=== PATIENT | male | born 1995 | race Caucasian/White ===

== ENCOUNTER 2018-11-20 13:14 | Emergency (ER) | payer BC ==
[~2018-11-20] VITALS: Ht 182.9 cm; Wt 111.7 kg
[2018-11-20 13:15] VITALS: BP 140/99
[2018-11-20] MEDS ORDERED: MELO7.5T29 PO (13:39)
[2018-11-20] MEDS ORDERED: SULF1TAB24 PO (13:39)
--- NOTE | 2018-11-20 13:39 | PHYS DOC ---
Past History Past Medical History: No Pertinent History Past Surgical History: No Surgical History Smoking: Cigarettes Alcohol Use: Occasionally Drug Use: Marijuana Adult General Chief Complaint Chief Complaint: LOWER EXT PAIN HPI HPI Patient is a 23-year-old male presents with a region on his right medial thigh that has been red and hot for approximately the past week. Patient denies any subjective fever. Denies any drainage. Increased pain with movement especially extension of his leg. No numbness or tingling. No trauma. No injection of drugs in the region. No home pain medicine has been taken.[] Review of Systems Review of Systems Constitutional: Denies fever or chills [] Eyes: Denies change in visual acuity, redness, or eye pain [] HENT: Denies nasal congestion or sore throat [] Respiratory: Denies cough or shortness of breath [] Cardiovascular: No chest pain or palpitations[] GI: Denies abdominal pain, nausea, vomiting, bloody stools or diarrhea [] : Denies dysuria or hematuria [] Musculoskeletal: Denies back pain or joint pain [] Integument: See history of present illness[] Neurologic: Denies headache, focal weakness or sensory changes [] Endocrine: Denies polyuria or polydipsia [] All other systems were reviewed and found to be within normal limits, except as documented in this note. Allergies Allergies Allergies Coded Allergies Type Severity Reaction Last Updated Verified No Known Drug Allergies 11/20/18 No Physical Exam Physical Exam Constitutional: Well developed, well nourished, no acute distress, non-toxic appearance. [] HENT: Normocephalic, atraumatic, bilateral external ears normal, oropharynx moist, no oral exudates, nose normal. [] Eyes: PERRLA, EOMI, conjunctiva normal, no discharge. [] Neck: Normal range of motion, no tenderness, supple, no stridor. [] Cardiovascular:Heart rate regular rhythm, no murmur [] Lungs & Thorax: Bilateral breath sounds clear to auscultation [] Abdomen: Not examined. [] Skin: Warm, dry, erythema and induration medial thigh on the right. No inguinal lymphadenopathy. No drainable abscess appreciated. This is approximately 10 cm cephalad to caudad and 7 cm transverse[] Back: No tenderness, no CVA tenderness. [] Extremities: No tenderness, no cyanosis, no clubbing, ROM intact, no edema. [] Neurologic: Alert and oriented X 3, normal motor function, normal sensory function, no focal deficits noted. [] Psychologic: Affect normal, judgement normal, mood normal. [] EKG EKG [] Radiology/Procedures Radiology/Procedures [] Course & Med Decision Making Course & Med Decision Making Pertinent Labs and Imaging studies reviewed. (See chart for details) Medical decision making: Patient appears to have cellulitis without any drainable abscess. No evidence of systemic toxicity. No evidence of staph scalded skin syndrome, no toxic epidermal necrolysis, no Haynes-Ivan syndrome. ED course: Patient arrived, was placed in bed, and tolerated exam well. Discussed findings and plan with the patient voiced understanding. All questions were answered. He was discharged in improved condition.[] Dragon Disclaimer Dragon Disclaimer This electronic medical record was generated, in whole or in part, using a voice recognition dictation system. Departure Departure: Impression: Primary Impression: Cellulitis of right thigh Disposition: HOME, SELF-CARE Condition: IMPROVED Referrals: LUCIE BAPTISTE MD (PCP) Follow-up in 2 days Patient Instructions: Cellulitis Additional Instructions: Follow-up with your regular doctor in 2 days for a recheck. Apply warm compresses for 15 minutes at a time, at least 4 times a day to the affected area. Return to the ER if you develop a fever of more than 101�, purulent drainage develops, or any other concerns. Scripts Meloxicam (MELOXICAM) 7.5 Mg Tablet 7.5 MG PO DAILY for PAIN, #20 TAB Prov: LAM BAUTISTA DO 11/20/18 Sulfamethoxazole/Trimethoprim (BACTRIM DS TABLET) 1 Each Tablet 2 TAB PO BID for cellulitis, #40 TAB Prov: LAM BAUTISTA DO 11/20/18 LAM BAUTISTA DO Nov 20, 2018 13:39
== END 2018-11-20 13:40 | disposition home or self-care (01) ==
LOC: ER 13:14
DX: L03.115 Cellulitis of right lower limb (principal); F17.210 Nicotine dependence, cigarettes, uncomplicated
CPT/HCPCS: 99283

== ENCOUNTER 2019-11-20 00:56 | Emergency (ER) | payer BC ==
[~2019-11-20] VITALS: Ht 182.9 cm; Wt 109.0 kg
[~2019-11-20 00:56] MED LIST: MELO7.5T29 PO; SULF1TAB24 PO
[2019-11-20 01:32] VITALS: BP 146/89
--- NOTE | 2019-11-20 01:54 | PHYS DOC ---
Past History Past Medical History: No Pertinent History Past Surgical History: No Surgical History Smoking: Cigarettes Alcohol Use: Occasionally Drug Use: Marijuana General Adult EDM: Chief Complaint: DENTAL PROBLEM HPI: HPI: "..I got bad tooth..I could not get in to Dentist..COVID.. now I got this abscess.." Patient is a 24-year-old male who presents with above history and complaints of pain, fever, and pointing abscess at tooth #7. Patient is attempted to get into dentist however limited appointments due to COVID. Patient denies any history of depression. No history of travel. No history of depression. Up-to-date with vaccinations. Review of Systems: Review of Systems: Constitutional: Complains of fever Eyes: Denies change in visual acuity HENT: Denies nasal congestion or sore throat. Complaints of dental pain Respiratory: Denies cough or shortness of breath Cardiovascular: Denies chest pain or edema GI: Denies abdominal pain, nausea, vomiting, bloody stools or diarrhea : Denies dysuria Musculoskeletal: Denies back pain or joint pain Integument: Denies rash Neurologic: Denies headache, focal weakness or sensory changes Endocrine: Denies polyuria or polydipsia Lymphatic: Denies swollen glands Psychiatric: Denies depression or anxiety Heart Score: Risk Factors: Risk Factors: DM, Current or recent (<one month) smoker, HTN, HLP, family history of CAD, obesity. Risk Scores: Score 0 - 3: 2.5% MACE over next 6 weeks - Discharge Home Score 4 - 6: 20.3% MACE over next 6 weeks - Admit for Clinical Observation Score 7 - 10: 72.7% MACE over next 6 weeks - Early Invasive Strategies Family History: Family History: Noncontributory Current Medications: Current Meds: See nursing for home meds Allergies: Allergies: Allergies Coded Allergies Type Severity Reaction Last Updated Verified No Known Drug Allergies 11/20/18 No Physical Exam: PE: Constitutional: in acute distress, non-toxic appearance. [] HENT: Normocephalic, atraumatic, bilateral external ears normal, oropharynx mo ist, no oral exudates, nose normal. Dental caries. Pointing abscess at tooth #7 Eyes: PERRLA, EOMI, conjunctiva normal, no discharge. [] Neck: Normal range of motion, no tenderness, supple, no stridor. [] Cardiovascular:Heart rate regular rhythm, no murmur [] Lungs & Thorax: Bilateral breath sounds equal apex with few scattered wheezes auscultation [] Abdomen: Bowel sounds normal, soft, no tenderness, no masses, no pulsatile masses. [] Skin: Warm, dry, no erythema, no rash. [] Back: No tenderness, no CVA tenderness. [] Extremities: No tenderness, no cyanosis, no clubbing, ROM intact, no edema. [] Neurologic: Alert and oriented X 3, normal motor function, normal sensory function, no focal deficits noted. [] Psychologic: Affect anxious, judgement normal, mood normal. [] Current Patient Data: Vital Signs: Vital Signs Date Time Temp Pulse Resp B/P (MAP) Pulse Ox O2 Delivery O2 Flow Rate FiO2 11/20/19 01:32 97.8 61 18 146/89 (108) 100 Room Air EKG: EKG: [] Radiology/Procedures: Radiology/Procedures: [] Course & Med Decision Making: Course & Med Decision Making Pertinent Labs and Imaging studies reviewed. (See chart for details) Procedure note-incision and drainage of abscess at tooth #7-1 stick with 11 blade. Large amount of pus drained. Irrigated area with hydroperoxide. Patient take Keflex 500 mg 3 times a day. Take Flagyl 500 mg 3 times a day. Patient follow-up with dentist. Rinse mouth with peroxide 4 times a day after eating. Return if any concerns. Take Tylenol and ibuprofen for pain. Vicoprofen up to 4 times a day for marked pain. Impression: 1. Dental Abscess tooth7# [] Dragon Disclaimer: Dragon Disclaimer: This electronic medical record was generated, in whole or in part, using a voice recognition dictation system. Departure Departure: Disposition: HOME/RESIDENCE PRIOR TO ADM Condition: STABLE Referrals: LUCIE BAPTISTE MD (PCP) Justification of Admission: Justification of Admission: Justification of Admission Dx: N/A Dragon Disclaimer This chart was dictated in whole or in part using Voice Recognition software in a busy, high-work load, and often noisy Emergency Department environment. It may contain unintended and wholly unrecognized errors or omissions. Dragon Disclaimer This chart was dictated in whole or in part using Voice Recognition software in a busy, high-work load, and often noisy Emergency Department environment. It may contain unintended and wholly unrecognized errors or omissions. BEAU BARAJAS MD Nov 20, 2019 01:54
[2019-11-20] MEDS ORDERED: cefTRIAXone IM 1 GM VIAL IM ONE (02:00)
[2019-11-20] MEDS ORDERED: metroNIDAZOLE 500 MG TABLET PO ONE (02:00)
[2019-11-20] MEDS ORDERED: KETOROLAC 60 MG/2 ML VIAL. IM ONE (02:00)
[2019-11-20] MEDS ORDERED: cefTRIAXone SODIUM 1 GM VIAL ONE (02:13)
== END 2019-11-20 02:35 | disposition home or self-care (01) ==
LOC: ER 00:56
DX: K04.7 Periapical abscess without sinus (principal); K02.9 Dental caries, unspecified; F17.210 Nicotine dependence, cigarettes, uncomplicated
CPT/HCPCS: 41800; 96372; 99284; J0696; J1885

== ENCOUNTER 2020-10-18 10:50 | Emergency (ER) | payer SELFPAY ==
[~2020-10-18] VITALS: Ht 182.9 cm; Wt 109.0 kg
[2020-10-18 11:37] VITALS: BP 123/85
--- NOTE | 2020-10-18 12:20 | PHYS DOC ---
Past History Past Medical History: No Pertinent History Past Surgical History: No Surgical History Smoking: Cigarettes Alcohol Use: Occasionally Drug Use: Marijuana General Adult EDM: Chief Complaint: OTHER COMPLAINTS HPI: HPI: 25-year-old male presents with right lower quadrant abdominal pain. The patient has had pain for several days. It started as more of a generalized abdominal pain that has migrated to the right lower quadrant. He states that turning quickly in the vehicle bothers it. It is tender in this location. He has no change in bowel or bladder habits. He was recently treated with antibiotics for a bacterial skin infection. He is currently on no medications except for a topical cream for an unrelated issue. Patient denies fever or chills. He has had some nausea but no vomiting. Review of Systems: Review of Systems: Constitutional: Denies fever or chills Eyes: Denies change in visual acuity HENT: Denies nasal congestion or sore throat Respiratory: Denies cough or shortness of breath Cardiovascular: Denies chest pain or edema GI: Right lower quadrant abdominal pain, nausea. Denies vomiting, bloody stools or diarrhea : Denies dysuria Musculoskeletal: Denies back pain or joint pain Integument: Denies rash Neurologic: Denies headache, focal weakness or sensory changes Endocrine: Denies polyuria or polydipsia Lymphatic: Denies swollen glands Psychiatric: Denies depression or anxiety Allergies: Allergies: Allergies Coded Allergies Type Severity Reaction Last Updated Verified No Known Drug Allergies 11/20/18 No Physical Exam: PE: Constitutional: Well developed, well nourished, obese, no acute distress, non- toxic appearance. [] HENT: Normocephalic, atraumatic, bilateral external ears normal, oropharynx moist, no oral exudates, nose normal. [] Eyes: PERRLA, EOMI, conjunctiva normal, no discharge. [] Neck: Normal range of motion, no tenderness, supple, no stridor. [] Cardiovascular: Heart rate regular rhythm, no murmur [] Lungs & Thorax: Bilateral breath sounds clear to auscultation [] Abdomen: Bowel sounds normal, soft, RLQ tenderness, no masses, no pulsatile masses. [] Skin: Warm, dry, no erythema, no rash. [] Back: No tenderness, no CVA tenderness. [] Extremities: No tenderness, no cyanosis, no clubbing, ROM intact, no edema. [] Neurologic: Alert and oriented X 3, normal motor function, normal sensory function, no focal deficits noted. [] Psychologic: Affect normal, judgement normal, mood normal. [] Current Patient Data: Vital Signs: Vital Signs Date Time Temp Pulse Resp B/P (MAP) Pulse Ox O2 Delivery O2 Flow Rate FiO2 10/18/20 11:37 98.0 62 12 123/85 98 Room Air EKG: EKG: [] Radiology/Procedures: Radiology/Procedures: [] Impressions: INDICATION: Reason: RLQ pain / Spl. Instructions: / History: . COMPARISON: None. TECHNIQUE: Axial CT images obtained through the abdomen and pelvis with contrast. One or more of the following individualized dose reduction techniques were utilized for this examination: 1. Automated exposure control; 2. Adjustment of the mA and/or kV according to patient size; 3. Use of iterative reconstruction technique. FINDINGS: Abdominal aorta is not aneurysmal. Small fat-containing left inguinal hernia suspected. Small fat-containing umbilical hernia. No intrahepatic bile duct dilation. Liver appears mildly low density. Nonspecific but can be seen with fatty infiltration. No peripancreatic fluid collection. Spleen unremarkable. No hydronephrosis. Urinary bladder is partially distended. Mild prominence the wall of the distal descending colon with adjacent edema to the fat. The appendix does not appear inflamed. No dilated loops of bowel to suggest obstruction. Degenerative changes of the hips. There is some osseous overgrowth at the femoral head neck junction bilaterally IMPRESSION: * Wall thickening of the distal descending colon with adjacent edema to the fat which could be secondary to diverticulitis or colitis. A colonic mass would be less common in a patient of this age but follow-up could be obtained to ensure that this appropriately resolves. * No evidence of appendicitis. * There is some degenerative changes the hips with overgrowth at the bilateral femoral head neck junction. Would correlate with symptoms to ensure that this is not secondary to causes such as CAM Type femoral acetabular impingement. There is also some mild sclerosis at the bilateral femoral heads which could be related to degenerative changes with alternative causes such as avascular necrosis not excluded. Electronically signed by: Grisel Love MD (10/18/2020 12:57 PM) [id number] U DICTATED AND SIGNED BY: GRISEL LOVE MD DATE: 10/18/20 1246 CC: NATALIIA BARILLAS DO; PCP,NO ~MTH0 0 Heart Score: C/O Chest Pain: N/A Risk Factors: Risk Factors: DM, Current or recent (<one month) smoker, HTN, HLP, family history of CAD, obesity. Risk Scores: Score 0 - 3: 2.5% MACE over next 6 weeks - Discharge Home Score 4 - 6: 20.3% MACE over next 6 weeks - Admit for Clinical Observation Score 7 - 10: 72.7% MACE over next 6 weeks - Early Invasive Strategies Course & Med Decision Making: Course & Med Decision Making Pertinent Labs and Imaging studies reviewed. (See chart for details) The patient CT shows possible acute diverticulitis. I will treat him with Augmentin for the next 10 days. He also has some incidental findings that I h daniel made the patient aware of. He needs to follow this up with his primary doctor. See official read for more details. He is stable for discharge at this time. [] Dragon Disclaimer: Dragon Disclaimer: This electronic medical record was generated, in whole or in part, using a voice recognition dictation system. Departure Departure: Impression: Primary Impression: Diverticulitis Disposition: HOME / SELF CARE / HOMELESS Condition: STABLE Referrals: PCP,NO (PCP) Patient Instructions: Diverticulitis, [id number] Scripts Amoxicillin/Potassium Clav (AUGMENTIN 875-125 TABLET) 1 Each Tablet 1 TAB PO BID for diverticulitis for 10 Days, #20 TAB 0 Refills Prov: NATALIIA BARILLAS DO 10/18/20 NATALIIA BARILLAS DO Oct 18, 2020 12:20
[2020-10-18] MEDS ORDERED: CONTRAST GIVEN. MC PRN (12:30)
[2020-10-18] MEDS ORDERED: IOHEXOL 300 MG/ML 75 ML VIAL. IV ONE (12:30)
[2020-10-18 12:53] LABS: BASO # 0.1 x10^3/uL (0.0-0.2); BASO % 1 % (0-3); EOS # 0.2 x10^3/uL (0.0-0.7); EOS % 2 % (0-3); HEMOGLOBIN 15.8 g/dL (13.0-17.5); LYMPH # 2.9 x10^3/uL (1.0-4.8); LYMPH % 23 % (24-48); MEAN CORPUSCULAR HEMOGLOBIN 31 pg (25-35); MEAN CORPUSCULAR HGB CONC 34 g/dL (31-37); MEAN CORPUSCULAR VOLUME 92 fL (79-100); MONO # 0.8 x10^3/uL (0.0-1.1); MONO % 6 % (0-9); NEUT # 8.9 x10^3uL (1.8-7.7); NEUT % 69 % (31-73); PLATELET COUNT 261 x10^3/uL (140-400); RED BLOOD COUNT 5.09 x10^6/uL (4.30-5.70); WHITE BLOOD COUNT 12.9 x10^3/uL (4.0-11.0)
[2020-10-18 13:00] LABS: CALCIUM 8.6 mg/dL (8.5-10.1); CREATININE 0.7 mg/dL (0.7-1.3); GFR 136.3
--- NOTE | 2020-10-18 13:00 | RAD ---
INDICATION: Reason: RLQ pain / Spl. Instructions: / History: . COMPARISON: None. TECHNIQUE: Axial CT images obtained through the abdomen and pelvis with contrast. One or more of the following individualized dose reduction techniques were utilized for this examinat ion: 1. Automated exposure control; 2. Adjustment of the mA and/or kV according to patient size; 3 . Use of iterative reconstruction technique. FINDINGS: Abdominal aorta is not aneurysmal. Small fat-containing left inguinal hernia suspected. Small fat-containing umbilical hernia. No intrahepatic bile duct dilation. Liver appears mildly low density. Nonspecific but can be seen with fatty infiltration. No peripancreatic fluid collection. Spleen unremarkable. No hydronephrosis. Urinary bladder is partially distended. Mild prominence the wall of the distal descending colon with adjacent edema to the fat. The appendix does not appear inflamed. No dilated loops of bowel to suggest obstruction. Degenerative changes of the hips. There is some osseous overgrowth at the femoral head neck junction bilaterally IMPRESSION: * Wall thickening of the distal descending colon with adjacent edema to the fat which could be secon gerri to diverticulitis or colitis. A colonic mass would be less common in a patient of this age but f ollow-up could be obtained to ensure that this appropriately resolves. * No evidence of appendicitis. * There is some degenerative changes the hips with overgrowth at the bilateral femoral head neck thanh ction. Would correlate with symptoms to ensure that this is not secondary to causes such as CAM Type femoral acetabular impingement. There is also some mild sclerosis at the bilateral femoral heads whic h could be related to degenerative changes with alternative causes such as avascular necrosis not exc luded. Electronically signed by: Crescencio Love MD (10/18/2020 12:57 PM) [id number]
[2020-10-18 13:05] LABS: ALBUMIN 3.9 g/dL (3.4-5.0); ALBUMIN/GLOBULIN RATIO 1.1 (1.0-1.7); TOTAL BILIRUBIN 0.9 mg/dL (0.2-1.0); TOTAL PROTEIN 7.4 g/dL (6.4-8.2)
[2020-10-18] MEDS ORDERED: AMOX1TAB61 PO (13:28)
== END 2020-10-18 13:37 | disposition home or self-care (01) ==
LOC: ER 10:50
DX: K57.92 Diverticulitis of intestine, part unspecified, without perforation or abscess without bleeding (principal); F17.210 Nicotine dependence, cigarettes, uncomplicated; F12.10 Cannabis abuse, uncomplicated
CPT/HCPCS: 36415; 74177; 80053; 85025; 99285; Q9967